=== PATIENT | male | born 1965 | race Caucasian/White ===

== ENCOUNTER 2018-12-03 05:23 | Emergency (ER) | payer SELFPAY ==
[2018-12-03] MEDS ORDERED: Ketorolac 60 MG/2 ML SDV IM ONE (05:37)
[2018-12-03 05:38] VITALS: BP 131/84
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
== END 2018-12-03 06:17 | disposition home or self-care (01) ==
LOC: MW.ED 05:23
DX: S22.32XA Fracture of one rib, left side, initial encounter for closed fracture (principal); W20.8XXA Other cause of strike by thrown, projected or falling object, initial encounter
CPT/HCPCS: 71101; 96372; 99283; J1885

== ENCOUNTER 2021-08-14 07:54 | Day surgery (SDC) | payer MEDICAID ==
[~2021-08-14 07:54] MED LIST: Lactated Ringers 1,000 ML IV SCH
[2021-08-14] MEDS ORDERED: Midazolam 1 MG/ML 2 ML SDV ONE (10:44)
[2021-08-14] MEDS ORDERED: fentaNYL 100 MCG/2 ML SDV ONE (10:44)
[2021-08-14] MEDS ORDERED: Propofol 200 MG/20 ML SDV ONE (10:44)
[2021-08-14] MEDS ORDERED: Ketamine HCL/NACL, ISO-OSM 50 MG/5 ML Syringe ONE (10:58)
[2021-08-14] MEDS ORDERED: ePHEDrine 50 MG/ML SDV ONE (11:35)
[2021-08-14] MEDS ORDERED: Lactated Ringers 1,000 ML IV SCH (12:00)
[2021-08-14 13:29] VITALS: BP 113/70; PULSE 64
== END 2021-08-14 12:58 | disposition home or self-care (01) ==
LOC: MW.SDS 07:54
PROVIDERS: ATTEND Surgery
DX: D12.3 Benign neoplasm of transverse colon (principal); D12.8 Benign neoplasm of rectum; K29.50 Unspecified chronic gastritis without bleeding; K20.90 Esophagitis, unspecified without bleeding; F17.200 Nicotine dependence, unspecified, uncomplicated; J44.9 Chronic obstructive pulmonary disease, unspecified; E66.9 Obesity, unspecified; Z68.33 Body mass index [BMI] 33.0-33.9, adult; Z90.89 Acquired absence of other organs; Z98.890 Other specified postprocedural states; Z90.49 Acquired absence of other specified parts of digestive tract
CPT/HCPCS: 43239; 45380; J2250; J2704; J3010; J7120; 00813

== ENCOUNTER 2022-07-20 08:19 | Emergency (ER) | payer OTHER, MEDICAID ==
[2022-07-20 10:21] VITALS: BP 128/70; PULSE 72
== END 2022-07-20 10:18 | disposition home or self-care (01) ==
LOC: MW.ED 08:19
DX: S06.0X0A Concussion without loss of consciousness, initial encounter (principal); R05.9 Cough, unspecified; J44.9 Chronic obstructive pulmonary disease, unspecified; E66.9 Obesity, unspecified; Z68.35 Body mass index [BMI] 35.0-35.9, adult; W00.0XXA Fall on same level due to ice and snow, initial encounter
CPT/HCPCS: 70450; 70450-26; 99283